=== PATIENT | female | born 1995 | race Caucasian/White ===

== ENCOUNTER 2020-04-06 11:46 | Emergency (ER) | payer BC ==
[~2020-04-06] VITALS: Ht 167.6 cm; Wt 60.6 kg
[2020-04-06 11:50] VITALS: BP 129/84
[2020-04-06 12:37] LABS: BASO # 0.1 x10^3/uL (0.0-0.2); BASO % 1 % (0-3); EOS # 0.1 x10^3/uL (0.0-0.7); EOS % 2 % (0-3); HEMOGLOBIN 14.2 g/dL (12.0-15.5); LYMPH % 28 % (24-48); MEAN CORPUSCULAR HEMOGLOBIN 30 pg (25-35); MEAN CORPUSCULAR HGB CONC 33 g/dL (31-37); MEAN CORPUSCULAR VOLUME 90 fL (79-100); MONO # 0.7 x10^3/uL (0.0-1.1); MONO % 9 % (0-9); NEUT # 4.3 x10^3uL (1.8-7.7); NEUT % 60 % (31-73); PLATELET COUNT 243 x10^3/uL (140-400); RED BLOOD COUNT 4.79 x10^6/uL (3.50-5.40); RED CELL DISTRIBUTION WIDTH 12.8 % (11.5-14.5); WHITE BLOOD COUNT 7.1 x10^3/uL (4.0-11.0)
--- NOTE | 2020-04-06 13:21 | PHYS DOC ---
Past History Past Medical History: No Pertinent History Past Surgical History: No Surgical History Alcohol Use: Rarely Adult General Chief Complaint Chief Complaint: VAGINAL BLEEDING [facility] Patient is a 25F presenting emergency department with vaginal bleeding will . Patient states she believes that she is 6 weeks by last m enstrual period. Patient states that this morning she had new onset of small amount of spotting. Also notes a mild amount of abdominal pain. Denies any fever or chills. Denies any history of similar symptoms. Denies any dysuria pyuria Review of Systems Review of Systems Constitutional: Denies fever or chills [] Eyes: Denies change in visual acuity, redness, or eye pain [] HENT: Denies nasal congestion or sore throat [] Respiratory: Denies cough or shortness of breath [] Cardiovascular: No additional information not addressed in [facility] [] GI: Denies abdominal pain, nausea, vomiting, bloody stools or diarrhea [] : Denies dysuria or hematuria [] Musculoskeletal: Denies back pain or joint pain [] Integument: Denies rash or skin lesions [] Neurologic: Denies headache, focal weakness or sensory changes [] Endocrine: Denies polyuria or polydipsia [] All other systems were reviewed and found to be within normal limits, except as documented in this note. Allergies Allergies Allergies Coded Allergies Type Severity Reaction Last Updated Verified Sulfa (Sulfonamide Antibiotics) Allergy Unknown 04/06/20 Yes Physical Exam Physical Exam Constitutional: Well developed, well nourished, no acute distress, non-toxic appearance. [] HENT: Normocephalic, atraumatic, bilateral external ears normal, oropharynx moist, no oral exudates, nose normal. [] Eyes: PERRLA, EOMI, conjunctiva normal, no discharge. [] Neck: Normal range of motion, no tenderness, supple, no stridor. [] Cardiovascular:Heart rate regular rhythm, no murmur [] Lungs & Thorax: Bilateral breath sounds clear to auscultation [] Abdomen: Bowel sounds normal, soft, no tenderness, no masses, no pulsatile masses. [] Skin: Warm, dry, no erythema, no rash. [] Back: No tenderness, no CVA tenderness. [] Extremities: No tenderness, no cyanosis, no clubbing, ROM intact, no edema. [] Neurologic: Alert and oriented X 3, normal motor function, normal sensory function, no focal deficits noted. [] Psychologic: Affect normal, judgement normal, mood normal. [] Current Patient Data Vital Signs Vital Signs Date Time Temp Pulse Resp B/P (MAP) Pulse Ox O2 Delivery O2 Flow Rate FiO2 04/06/20 11:50 98.9 87 16 129/84 (99) 100 Room Air Lab Results Laboratory Tests Test 04/06/20 12:15 White Blood Count 7.1 x10^3/uL (4.0-11.0) Red Blood Count 4.79 x10^6/uL (3.50-5.40) Hemoglobin 14.2 g/dL (12.0-15.5) Hematocrit 43.0 % (36.0-47.0) Mean Corpuscular Volume 90 fL (79-100) Mean Corpuscular Hemoglobin 30 pg (25-35) Mean Corpuscular Hemoglobin Concent 33 g/dL (31-37) Red Cell Distribution Width 12.8 % (11.5-14.5) Platelet Count 243 x10^3/uL (140-400) Neutrophils (%) (Auto) 60 % (31-73) Lymphocytes (%) (Auto) 28 % (24-48) Monocytes (%) (Auto) 9 % (0-9) Eosinophils (%) (Auto) 2 % (0-3) Basophils (%) (Auto) 1 % (0-3) Neutrophils # (Auto) 4.3 x10^3uL (1.8-7.7) Lymphocytes # (Auto) 2.0 x10^3/uL (1.0-4.8) Monocytes # (Auto) 0.7 x10^3/uL (0.0-1.1) Eosinophils # (Auto) 0.1 x10^3/uL (0.0-0.7) Basophils # (Auto) 0.1 x10^3/uL (0.0-0.2) Maternal Serum HCG Beta Subunit 4066 mIU/mL (0-6) H Radiology/Procedures Radiology/Procedures Exam performed: OB sonogram less than 14 weeks. History:Intractable nausea and vomiting with abdominal pain. Date of service: 04/06/2020. Comparison: None available Technique: Transabdominal. Findings: The uterus measures 9.2 x 4.9 x 4.4cm. There is a single intrauterine uterine gestational sac containing a pole. The CRL measures3.4 millimeter corresponding to 6 weeks and 0 days with EDC of 11/30/2020. heart rate could not be obtained. Bilateral ovaries are normal. The right ovary measures 4.0 x 2.1 x 2.0 cm the left ovary measures 2.9 x 1.2 x 1.8 cm. No solid or cystic mass lesions identified. No free fluid Impression: Single intrauterine gestational sac containing pole of maturity 6 weeks and 0 days with no identifiable heart rate.Correlate with serial quantitative beta-hCG level and short-term interval follow-up OB sonogram in approximately one week may be obtained to ensure interval stability Electronically signed by: Nimisha Sanchez MD (04/06/2020 1:24 PM) [id number] Heart Score Risk Factors: Risk Factors: DM, Current or recent (<one month) smoker, HTN, HLP, family history of CAD, obesity. Risk Scores: Risk Factors: DM, Current or recent (<one month) smoker, HTN, HLP, family history of CAD, obesity. Course & Med Decision Making Course & Med Decision Making Pertinent Labs and Imaging studies reviewed. (See chart for details) 25-year-old female now 6 weeks with new onset of vaginal bleeding. Will obtain work-up to rule out ectopic and reevaluate 13:19 -labs obtained patient appears to be A+. No need for RhoGam. Ultrasound does demonstrate what appears to be an intrauterine . This is consistent with the patient's beta hCG. Hemoglobin is normal. At this time for the patient be safely discharged home. Dragon Disclaimer Dragon Disclaimer This electronic medical record was generated, in whole or in part, using a voice recognition dictation system. Departure Departure: Impression: Primary Impression: Threatened Disposition: 01 DC HOME SELF CARE/HOMELESS Condition: GOOD Referrals: FALGUNI SORIANO MD (PCP) Patient Instructions: Threatened Miscarriage YVONNE WORKMAN MD Apr 06, 2020 13:21
--- NOTE | 2020-04-06 13:26 | RAD ---
Exam performed: OB sonogram less than 14 weeks. History:Intractable nausea and vomiting with abdominal pain. Date of service: 04/06/2020. Comparison: None available Technique: Transabdominal. Findings: The uterus measures 9.2 x 4.9 x 4.4cm. There is a single intrauterine uterine gestational sac contain ing a pole. The CRL measures3.4 millimeter corresponding to 6 weeks and 0 days with EDC of 11/30/2020. heart rate could not be obtained. Bilateral ovaries are normal. The right ovary measures 4.0 x 2.1 x 2.0 cm the left ovary measures 2.9 x 1.2 x 1.8 cm. No solid or cystic mass lesions identified. No free fluid Impression: Single intrauterine gestational sac containing pole of maturity 6 weeks and 0 days with no iden tifiable heart rate.Correlate with serial quantitative beta-hCG level and short-term interval follow- up OB sonogram in approximately one week may be obtained to ensure interval stability Electronically signed by: Nimisha Sanchez MD (04/06/2020 1:24 PM) [id number]
== END 2020-04-06 13:35 | disposition home or self-care (01) ==
LOC: ER 11:46
DX: O20.0 Threatened abortion (principal); Z3A.01 Less than 8 weeks gestation of pregnancy; Z88.2 Allergy status to sulfonamides
CPT/HCPCS: 36415; 76801; 84702; 85025; 86850; 86900; 86901; 99284